=== PATIENT | male | born 1965 | race Two or more races ===

== ENCOUNTER 2021-02-15 12:46 | Outpatient (CLI) | payer OTHER | END 2021-02-15 13:00 | disposition home or self-care (01) | LOC: RAD 12:46 | PROVIDERS: ATTEND Urology | DX: N20.1 Calculus of ureter (principal) ==

== ENCOUNTER → 2021-02-15 | Outpatient (CLI) | payer OTHER ==
[~2021-02-15] MED LIST: TAMS0.4C; ULTRACET
== END | disposition home or self-care (01) ==
LOC: LAB 13:20
PROVIDERS: ATTEND Urology
DX: R97.21 Rising PSA following treatment for malignant neoplasm of prostate (principal)

== ENCOUNTER 2021-03-01 04:10 | Day surgery (SDC) | payer OTHER ==
[~2021-03-01] VITALS: Ht 172.7 cm; Wt 81.6 kg
[2021-03-01] MEDS ORDERED: ULTRACET (04:20)
[2021-03-01] MEDS ORDERED: TAMS0.4C (04:20)
== END 2021-03-01 18:45 | disposition home or self-care (01) ==
LOC: ER 04:10 → CIR.AMB 08:02
PROVIDERS: ATTEND Urology
DX: N20.1 Calculus of ureter (principal); Z20.822 Contact with and (suspected) exposure to COVID-19

== ENCOUNTER → 2021-04-20 10:53 | Outpatient (CLI) | payer OTHER | END | disposition home or self-care (01) | LOC: RAD 10:53 | PROVIDERS: ATTEND Urology | DX: N20.1 Calculus of ureter (principal) ==